=== PATIENT | male | born 1995 | race Hispanic/Latino ===

== ENCOUNTER → 2017-10-16 | Outpatient (CLI) | payer BC ==
[~2017-10-16] MED LIST: IOPAMIDOL 370 MG/ML 200 ML INFUS..BTL INJ ONE; SODIUM CHLORIDE 0.9% 50ML 50 ML ONE; SOLODYN115 MG PO
--- NOTE | 2017-10-18 10:16 | Diagnostic Imaging Report ---
PROCEDURE:CT ABDOMEN AND PELVIS WITH CONTRAST COMPARISON:None. INDICATIONS:Right lower quadrant pain. Concern for appendicitis. TECHNIQUE:Multidetector CT scanning of the abdomen and pelvis was performed from the level of the lung bases to below the symphysis pubis, after intravenous administration of 100 cc of Isovue 370 and water orally.. Scanning during early and delayed phases was performed. Coronal and sagittal multiplanar reformations were obtained. Initial scan was limited to motion artifact, the exam was repeated during excretory phase. FINDINGS: Lung bases: No visualized abnormality. Abdomen: The liver, gallbladder, biliary tree, spleen, pancreas, adrenal glands, and kidneys are normal. The hepatic vein, portal vein, and splenic vein are patent. The celiac artery, SMA, and MAT are patent. The renal arteries are patent. The abdominal aorta is within normal limits. The stomach, small bowel, and large bowel are unremarkable. The appendix is unremarkable. There is no free fluid or free air. Mildly prominent lymph nodes in the right lower quadrant possibly reactive. Pelvis: The bladder is unremarkable. There is no evidence of free fluid or adenopathy. Bones and soft tissues: Degenerative changes are present in the lumbar spine. CONCLUSION: 1. No acute abdominopelvic abnormality. No acute appendicitis. 2. Mildly prominent lymph nodes in the right lower quadrant possibly reactive; correlate for mild lymphadenitis. Jarad Davis M.D. Dictated by: Jarad Davis M.D. on 10/16/2017 at 17:09 Electronically approved by: Jonatan Sims D.O. on 10/18/2017 at 10:19
== END | disposition home or self-care (01) ==
LOC: CT 14:47
PROVIDERS: ATTEND Internal Medicine Gastroenterology
DX: R10.31 Right lower quadrant pain (principal); R59.9 Enlarged lymph nodes, unspecified
CPT/HCPCS: 74177; Q9967

== ENCOUNTER → 2017-10-23 | Day surgery (SDC) | payer BC ==
[~2017-10-23] MED LIST changes: +ADVIL200 MG PO; +FENTANYL CITRATE/PF 100MCG/2 ML INJ ONE; -IOPAMIDOL 370 MG/ML 200 ML INFUS..BTL INJ ONE; +MIDAZOLAM HCL 2 MG/2 ML VIAL ONE; +NEXIUM40 MG PO; +PROPOFOL IV EMULSION 10 MG/ML 50 ML VIAL ONE; -SODIUM CHLORIDE 0.9% 50ML 50 ML ONE
--- NOTE | 2017-10-23 15:20 | Operative Report ---
DATE OF PROCEDURE: October 23, 2017 PROCEDURE PERFORMED: Colonoscopy with biopsies. INDICATIONS FOR COLONOSCOPY: Lower abdominal pain. MEDICATION: Patient was done under MAC. Please see anesthesiologist's note. PROCEDURE: With the patient in the left lateral decubitus position, the flexible fiberoptic Olympus colonoscope was inserted into the rectum with ease and advanced all the way to the cecum. Prep was suboptimal but visualization was fair. Whatever was visualized of the mucosa overlying the cecum revealed some patchy areas of erythema, and biopsies were obtained. The ileocecal valve was intubated, and the scope was advanced into the terminal ileum. Biopsies were obtained. The scope was then withdrawn slowly, and the ascending and transverse appeared to be within normal limits. Some of the mucosa in the descending colon revealed some patchy mild inflammatory changes, and biopsies were obtained. The sigmoid and the rectum grossly appeared to be within normal limits. The scope was then retroflexed into the distal rectum, and the area around the dentate line appeared to be within normal limits. The scope was then straightened out. It was subsequently withdrawn. Patient tolerated procedure well. IMPRESSION: Mild segmental colitis left colon. PLAN: Follow up histology. Initiate high-fiber low-fat diet. Initiate high-fiber supplement. Job#: [id number]
== END | disposition home or self-care (01) ==
LOC: ENDO 11:32
PROVIDERS: ATTEND Internal Medicine Gastroenterology
DX: K50.10 Crohn's disease of large intestine without complications (principal); R03.0 Elevated blood-pressure reading, without diagnosis of hypertension; F17.210 Nicotine dependence, cigarettes, uncomplicated; Z68.36 Body mass index [BMI] 36.0-36.9, adult; Z80.0 Family history of malignant neoplasm of digestive organs
CPT/HCPCS: 45380; J2250; 45378

== ENCOUNTER → 2020-01-01 | Outpatient (CLI) | payer BC ==
[~2020-01-01] MED LIST changes: -FENTANYL CITRATE/PF 100MCG/2 ML INJ ONE; +HYDROCODON-ACE1 EA11 PO; -MIDAZOLAM HCL 2 MG/2 ML VIAL ONE; +MOTRIN200 MG PO; -PROPOFOL IV EMULSION 10 MG/ML 50 ML VIAL ONE
--- NOTE | 2020-01-01 14:30 | Diagnostic Imaging Report ---
EXAM: US LIVER DATE: 01/01/2020 1:34 PM INDICATION: ^[id number] ^[id number] ^ELEVATED LIVER ENZYMES COMPARISON: None TECHNIQUE: Transverse and longitudinal penny scale and color doppler sonographic images of the right upper quadrant were obtained. FINDINGS: LIVER 16.9 cm in the right midclavicular line. Liver is diffusely echogenic with normal contour, no masses. GALLBLADDER Limited evaluation due to contracted state. No definite stones or surrounding fluid is identified. Negative reported sonographic Lobo's sign. BILE DUCTS No intra nor extra-hepatic biliary dilation. Common bile duct measures 0.6cm PANCREAS: Well visualized. RIGHT KIDNEY: 11.2 cm Echogenicity: Normal Collecting System: No hydronephrosis Stones: None Cyst/Mass: None VESSELS: Aorta: Visualized portions are within normal size limits Inferior Vena Cava: Visualized portions are normal Main Portal Vein: 0.9 cm, normal size with hepatopetal flow. FREE FLUID: None IMPRESSION: 1. Hepatic steatosis. 2. Contracted gallbladder limits evaluation. No ultrasound evidence of acute cholecystitis or biliary dilatation. Signed by: Chauncey Ash MD on 01/01/2020 2:27 PM
== END ==
LOC: US 13:26
PROVIDERS: ATTEND Internal Medicine Gastroenterology
DX: R74.8 Abnormal levels of other serum enzymes (principal)
CPT/HCPCS: 76705

== ENCOUNTER → 2020-01-03 | Day surgery (SDC) | payer BC, OTHER ==
[2019-12-31 09:50] LABS: BASOPHILS # (AUTO) 0.1 (0.0-0.1); EOSINOPHILS # (AUTO) 0.8 (0.0-0.4); EOSINOPHILS % 5.9 % (0.0-6.0); HEMATOCRIT 40.8 % (38.2-49.6); HEMOGLOBIN 13.7 g/dL (14.0-18.0); LYMPHOCYTES # (AUTO) 2.7 (1.0-3.2); LYMPHOCYTES % 20.9 % (18.0-39.1); MEAN CORPUSCULAR HEMOGLOBIN 28.5 pg (28-32); MEAN CORPUSCULAR HGB CONC 33.6 g/dL (31-35); MONOCYTES # (AUTO) 1.3 (0.2-0.8); NEUTROPHILS % 61.6 % (38.7-80.0); PLATELET COUNT 325 x10e3/uL (140-360); RED CELL DISTRIBUTION WIDTH 14.3 % (11.7-14.4)
[2019-12-31 10:12] LABS: ALANINE AMINOTRANSFERASE 166 IU/L (0-55); ALKALINE PHOSPHATASE 182 IU/L (40-150); ANION GAP 16.8 mmol/L (8-16); BLOOD UREA NITROGEN 8 mg/dL (7-26); BUN/CREATININE RATIO 10 (6-25); CALCIUM 9.3 mg/dL (8.4-10.2); CARBON DIOXIDE 23 mmol/L (22-29); CHLORIDE 99 mmol/L (98-107); CREATININE, SERUM 0.77 mg/dL (0.72-1.25); EST GLOMERULAR FILTRATION RATE > 60 ML/MIN (60-); GLUCOSE 101 mg/dL (74-118); POTASSIUM 3.8 mmol/L (3.5-5.1); SODIUM 135 mmol/L (136-145)
[2019-12-31 10:13] LABS: ALBUMIN 4.1 g/dL (3.5-5.0); ALBUMIN/GLOBULIN RATIO 1.2 (0.8-2.0)
[2019-12-31 11:02] LABS: PARTIAL THROMBOPLASTIN TIME 30.9 seconds (23.8-35.5)
[2019-12-31 11:12] LABS: INR 0.89; PROTHROMBIN TIME 12.5 seconds (11.9-14.5)
[~2020-01-03] MED LIST changes: +FENTANYL CITRATE/PF 100MCG/2 ML INJ ONE; +KETAMINE HCL INJ 50 MG/ML 10 ML VIAL ONE; +LIDOCAINE HCL 2% LOCAL INJ 5 ML SDV VIAL INJ ONE; +MIDAZOLAM HCL 2 MG/2 ML VIAL ONE; +PANTOPRAZOLE 40 MG 10ML VIAL ONE; +PROPOFOL IV EMULSION 10 MG/ML 20 ML VIAL ONE; +TYLENOL # 31 EA PO
[2020-01-03 15:35] VITALS: BP 143/79
--- NOTE | 2020-01-03 15:49 | Operative Report ---
DATE OF PROCEDURE: 01/03/2020 SURGEON: Renato Vuong MD PROCEDURE: EGD with biopsies. INDICATIONS FOR PROCEDURES: Epigastric pain, excessive belching, heartburn. MEDICATIONS: The patient was done under MAC, please see anesthesiologist's note. PROCEDURE IN DETAIL: With the patient in left lateral decubitus position, a flexible fiberoptic Olympus gastroscope was introduced into the esophagus under direct visualization without any difficulty. There was some patchy erythema noted in distal esophagus. The scope was then advanced with ease into the stomach, mucosa overlying the antrum and the body revealed some patchy erythema and [id number] edema, and some patchy nodularity noted primarily in the antrum. Biopsies were obtained and sent to stain for H. pylori. Pylorus was of normal contour and shape, it was intubated with ease and the scope was advanced all the way to the second portion of the duodenum. The scope was then withdrawn slowly and biopsies were obtained from the proximal second portion and duodenal bulb to rule out sprue. The scope was then withdrawn back into the stomach and retroflexed, and mucosa overlying the fundus and cardia appeared to be within normal limits. The scope was then straightened out, it was subsequently withdrawn. The patient tolerated the procedure well. IMPRESSION: 1. Distal esophagitis, mild. 2. Gastritis, biopsied, biopsies sent to stain for H. pylori. 3. Rule out sprue. PLAN: 1. Follow up histology. 2. Initiate Protonix 40 mg one p.o. q.a.m. a.c. Renato Vuong MD [facility] /[id number]
== END | disposition home or self-care (01) ==
LOC: OR 14:07
PROVIDERS: ATTEND Internal Medicine Gastroenterology
DX: K20.9 Esophagitis, unspecified (principal); K29.50 Unspecified chronic gastritis without bleeding; B96.81 Helicobacter pylori [H. pylori] as the cause of diseases classified elsewhere; K75.81 Nonalcoholic steatohepatitis (NASH); R74.8 Abnormal levels of other serum enzymes; K21.9 Gastro-esophageal reflux disease without esophagitis; E66.9 Obesity, unspecified; Z72.0 Tobacco use; Z01.812 Encounter for preprocedural laboratory examination; Z11.59 Encounter for screening for other viral diseases; Z68.36 Body mass index [BMI] 36.0-36.9, adult
CPT/HCPCS: 36415; 43239; 80053; 85025; 85610; 85730; C9113; J2001; J2250; J2704; J3010; U0002

== ENCOUNTER 2020-01-05 21:04 | Inpatient (IN) | payer BC, OTHER ==
[~2020-01-05] VITALS: Ht 180.3 cm; Wt 112.9 kg
[~2020-01-05 21:04] MED LIST changes: -FENTANYL CITRATE/PF 100MCG/2 ML INJ ONE; -KETAMINE HCL INJ 50 MG/ML 10 ML VIAL ONE; -LIDOCAINE HCL 2% LOCAL INJ 5 ML SDV VIAL INJ ONE; -MIDAZOLAM HCL 2 MG/2 ML VIAL ONE; -PANTOPRAZOLE 40 MG 10ML VIAL ONE; -PROPOFOL IV EMULSION 10 MG/ML 20 ML VIAL ONE; -TYLENOL # 31 EA PO
--- NOTE | 2020-01-05 21:35 | Emergency Department Note ---
History of Present Illnes History of Present Illness Chief Complaint: Abdominal Complaints History of Present Illness This is a 24 year old male PRESENTS TO ED FOR C/O GENERALIZED ABD PAIN ONSET X1 WEEK, WORSE TODAY, STATES HAD EGD AT THIS FACILITY BY Sylwia DOWELL ON MONDAY; PT TENDER TO RUQ ON PALPATION; PT WITH KNOWN HX GALLBLADDER/LIVER ISSUES, STATES WAS SUPPOSED TO SEE MD ON MONDAY BUT COULD NOT TAKE PAIN ANYMORE, PT TOLERATING PO, DENIES N/V/D; ON REVIEW OF HIS LAB WORK FROM 12/31/2019 PT HAD A TOTAL BILIRUBIN OF 6.6 PT ALSO HAD A LIVER ULTRASOUND ON 01/01/20 WHICH ONLY REVEALED A CONTRACTED GALL BLADDER . Historian: Patient Arrival Mode: Car Onset (how long ago): day(s) (7) Location: UPPER ABD Quality: PAIN Radiation: Reports non-radiation Severity: moderate Duration (how long): day(s) (7) Timing of current episode: constant Progression: worsening Chronicity: new Context: Reports recent surgery (EGD ON 01/03/20); Denies recent illness, Denies trauma/injury Relieving factors: none Exacerbating factors: none Associated symptoms: Reports denies other symptoms Treatments prior to arrival: none Past Medical/Family History Physician Review I have reviewed the patient's past medical and family history. Any updates have been documented here. Past Medical History Recent Fever: No Clinical Suspicion of Infectio: No New/Unexplained Change in Ment: No Past Medical History: GERD Other Medical History: GASTRITIS HEPATITIC STEATOSIS Other Surgery: EGD Social History Smoking Cessation: Current some day smoker Alcohol Use: Social Any Illegal Drug Use: No Physically hurt or threatened: No Other Any Pre-Existing Lines (PICC,: No Review of Systems Review of Systems Constitutional: Reports no symptoms EENTM: Reports no symptoms Cardiovascular: Reports no symptoms Respiratory: Reports no symptoms Gastrointestinal: Reports as per HPI Genitourinary: Reports no symptoms Musculoskeletal: Reports no symptoms Integumentary: Reports no symptoms Neurological: Reports no symptoms Psychological: Reports no symptoms Endocrine: Reports no symptoms Hematological/Lymphatic: Reports no symptoms Physical Exam Related Data Allergies: Coded Allergies: No Known Allergies (Unverified , 11/13/12) Triage Vital Signs Vital Signs Date Time Temp Pulse Resp B/P (MAP) Pulse Ox O2 Delivery O2 Flow Rate FiO2 01/05/20 21:10 98.7 75 19 147/74 100 Room Air Vital signs reviewed: Yes Physical Exam CONSTITUTIONAL Constitutional: Present well-developed, Present well-nourished HENT HENT: Present normocephalic, Present atraumatic, Present oropharynx clear/moist, Present nose normal HENT L/R: Present left ext ear normal, Present right ext ear normal EYES Eyes: Reports PERRL, Reports scleral icterus NECK Neck: Present ROM normal PULMONARY Pulmonary: Present effort normal, Present breath sounds normal CARDIOVASCULAR Cardiovascular: Present regular rhythm, Present heart sounds normal, Present capillary refill normal, Present normal rate GASTROINTESTINAL Abdominal: Present soft, Present bowel sounds normal, Present tender (RUQ); Absent guarding, Absent mass, Absent rebound, Absent hernia GENITOURINARY Genitourinary: Present exam deferred SKIN Skin: Present warm, Present dry MUSCULOSKELETAL Musculoskeletal: Present ROM normal NEUROLOGICAL Neurological: Present alert, Present oriented x 3, Present no gross motor or sensory deficits PSYCHOLOGICAL Psychological: Present mood/affect normal, Present judgement normal Results Laboratory Laboratory Laboratory Tests Test 01/05/20 21:15 Assessment & Plan Medical Decision Making MDM PT WITH UPPER ABD PAIN AND RECENT LABS WITH T BILI OF 6.6 CBC, CMP, AMYLASE, LIPASE, UA ORDERED TO EVAL FOR ELEVATED LFT'S, PANCREATITIS, UTI, ELECTROLYTE ABNORMALITY I SPOKE WITH DR FERNANDEZ AND DR Mandie DOWELL ADMIT INPATIENT, ORDER MRCP, HIDA SCAN AND HEPATITIS PANEL. PT'S ELEVATED BILIRUBIN IS NOT SEPSIS RELATED, IT IS AN ONGOING ISSUE THAT IS BEING WORKED UP AT THIS TIME. Assessment & Plan Final Impression: (1) Jaundice (2) Elevated LFTs (3) Elevated bilirubin (4) Abdominal pain (5) UTI (urinary tract infection) Depart Disposition: ADMITTED Last Vital Signs Date Time Temp Pulse Resp B/P (MAP) Pulse Ox O2 Delivery O2 Flow Rate FiO2 01/05/20 21:10 98.7 75 19 147/74 100 Room Air Home Meds Reported Medications Ibuprofen (MOTRIN) 200 Mg Tab, 200 MG PO PRN, TAB 12/31/19 Hydrocodone Bit/Acetaminophen (HYDROCODON-ACETAMINOPHEN 5-325) 1 Each Tablet, PO PRN 12/31/19 Discontinued Reported Medications Ibuprofen (ADVIL) 200 Mg Tablet, 1 TAB PO PRN 10/20/17 Esomeprazole Magnesium (NEXIUM) 40 Mg Capsule., 1 CAP PO DAILY PROTONIX [facility] FOR NEXIUM PER [facility] 10/20/17 AMARJIT SCHULTZ MD Jan 05, 2020 21:35
[2020-01-05 21:38] LABS: BASOPHILS # (AUTO) 0.2 (0.0-0.1); BASOPHILS % 1.5 % (0.0-1.0); CLARITY,URINE CLEAR (CLEAR); COLOR,URINE AMBER (YELLOW); EOSINOPHILS # (AUTO) 0.6 (0.0-0.4); EOSINOPHILS % 4.7 % (0.0-6.0); HEMATOCRIT 40.8 % (38.2-49.6); HEMOGLOBIN 13.5 g/dL (14.0-18.0); LEUKOCYTE ESTERASE ,URINE NEGATIVE (NEGATIVE); LYMPHOCYTES # (AUTO) 4.3 (1.0-3.2); LYMPHOCYTES % 33.2 % (18.0-39.1); MEAN CORPUSCULAR HGB CONC 33.1 g/dL (31-35); MEAN CORPUSCULAR VOLUME 84.5 fL (81-99); MONOCYTES % 7.5 % (4.4-11.3); NEUTROPHILS # (AUTO) 6.7 (2.1-6.9); NITRITE,URINE NEGATIVE (NEGATIVE); PLATELET COUNT 472 x10e3/uL (140-360); PROTEIN,URINE DIPSTICK NEGATIVE (NEGATIVE); RED BLOOD COUNT 4.83 x10e6/uL (4.3-5.7); RED CELL DISTRIBUTION WIDTH 15.9 % (11.7-14.4)
[2020-01-05 21:39] LABS: BILIRUBIN,URINE LARGE (NEGATIVE); KETONES,URINE NEGATIVE (NEGATIVE); URINE UROBILINOGEN 0.2 mg/dL (0.2 - 1)
[2020-01-05 21:47] LABS: BACTERIA,URINE MANY /HPF; EPITHELIAL CELLS,URINE FEW /LPF; RBC,URINE 0-5 /HPF (0-5)
--- OUTSIDE RECORDS SUMMARY | 2020-01-05 21:50 | XMS REPORT | Continuity of Care Document ---
Author Author [facility] t Organization [facility] Address [address] [place] [address] [place] [id number] Phone Unavailable Care Team Providers Care Back End Engineer Name Role Phone DANYELL DOWELL Attphyoscar Unavailable Problems This patient has no known problems. Allergies, Adverse Reactions, Alerts This patient has no known allergies or adverse reactions. Medications This patient has no known medications. Procedures This patient has no known procedures. Results Test Description Test Time Test Comments Results Result Comments Source LIVER 2020-01-01 14:25:00 [place] [address] Patient Name: TANI PARRA MR #: [id number] : 1995 Age/Sex: 24/M Req #: [id number] Adm Physician: Ordered by: DANYELL DOWELL MD Report #: [id number] Location: Room/Bed: Procedure: [id number] US/US LIVER Exam Date: 01/01/20 Exam Time: 1334 REPORT STATUS: Signed EXAM: US LIVER DATE: 01/01/2020 1:34 PM INDICATION: [id number] 1334 ELEVATED LIVER ENZYMES COMPARISON: None TECHNIQUE: Transverse and longitudinal penny scale and color doppler sonographic images of the right upper quadrant were obtained. FINDINGS: LIVER 16.9 cm in the right midclavicular line. Liver is diffusely echogenic with normal contour, no masses. GALLBLADDER Limited evaluation due to contracted state. No definite stones or surrounding fluid is identified. Negative reported sonographic Lobo's sign. BILE DUCTS No intra nor extra-hepatic biliary dilation. Common bile duct measures 0.6cm PANCREAS: Well visualized. RIGHT KIDNEY: 11.2 cm Echogenicity: Normal Collecting System: No hydronephrosis Stones: None Cyst/Mass: None VESSELS: Aorta: Visualized portions are within normal size limits Inferior Vena Cava: Visualized portions are normal Main Portal Vein: 0.9 cm, normal size with hepatopetal flow. FREE FLUID: None IMPRESSION: 1. Hepatic steatosis. 2. Contracted gallbladder limits evaluation. No ultrasound evidence of acute cholecystitis or biliary dilatation. Signed by: Mai Ash MD on 01/01/2020 2:27 PM Dictated By: MAI ASH MD 26 Transcribed By: WILL on 01/01/201426 COPY TO: DANYELL DOWELL MD CT ABDOMEN/PELVIS W 2017-10-16 17:09:00 [place] [address] Patient Name: TANI PARRA MR #: [id number] : 1995 Age/Sex: 22/M Req #: [id number] Adm Physician: Ordered by: DANYELL DOWELL MD Report #: [id number] Location: CT Room/Bed: Procedure: [id number] CT/CT ABDOMEN/PELVIS W Exam Date: 10/16/17 Exam Time: 1614 REPORT STATUS: Signed PROCEDURE: CT ABDOMEN AND PELVIS WITH CONTRAST COMPARISON: None. INDICATIONS: Right lower quadrant pain. Concern for appendicitis. TECHNIQUE: Multidetector CT scanning of the abdomen and pelvis was performed from the level of the lung bases to below the symphysis pubis, after intravenous administration of 100 cc of Isovue 370 and water orally.. Scanning during early and delayed phases was performed. Coronal and sagittal multiplanar reformations were obtained. Initial scan was limited to motion artifact, the exam was repeated during excretory phase. FINDINGS: Lung bases: No visualized abnormality. Abdomen: The liver, gallbladder, biliary tree, spleen, pancreas, adrenal glands, and kidneys are normal. The hepatic vein, portal vein, and splenic vein are patent. The celiac artery, SMA, and MAT are patent. The renal arteries are patent. The abdominal aorta is within normal limits. The stomach, small bowel, and large bowel are unremarkable. The appendix is unremarkable. There is no free fluid or free air. Mildly prominent lymph nodes in the right lower quadrant possibly reactive. Pelvis: The bladder is unremarkable. There is no evidence of free fluid or adenopathy. Bones and soft tissues: Degenerative changes are present in the lumbar spine. CONCLUSION: 1. No acute abdominopelvic abnormality. No acute appendicitis. 2. Mildly prominent lymph nodes in the right lower quadrant possibly reactive; correlate for mild lymphadenitis. Jarad Fernando M.D. Dictated by: Jarad Fernando M.D. on 10/16/2017 at 17:09 Electronically approved by: Jonatan Sims D.O. on 10/18/2017 at 10:19 Dictated By: MARY LOU FERNANDO MD, MD 1019 Transcribed By: RADHA on 10/18/17 1019 COPY TO: DANYELL DOWELL MD
[2020-01-05 21:51] LABS: ALANINE AMINOTRANSFERASE 96 IU/L (0-55); ALBUMIN 4.2 g/dL (3.5-5.0); ALBUMIN/GLOBULIN RATIO 1.2 (0.8-2.0); ALKALINE PHOSPHATASE 203 IU/L (40-150); AMYLASE 44 U/L (25-125); ANION GAP 20.3 mmol/L (8-16); BLOOD UREA NITROGEN 11 mg/dL (7-26); BUN/CREATININE RATIO 11 (6-25); CALCIUM 9.6 mg/dL (8.4-10.2); CARBON DIOXIDE 23 mmol/L (22-29); CHLORIDE 99 mmol/L (98-107); CREATININE, SERUM 0.99 mg/dL (0.72-1.25); EST GLOMERULAR FILTRATION RATE > 60 ML/MIN (60-); GLUCOSE 97 mg/dL (74-118); LIPASE 78 U/L (8-78); POTASSIUM 4.3 mmol/L (3.5-5.1); SODIUM 138 mmol/L (136-145)
[2020-01-05] MEDS ORDERED: ONDANSETRON HCL INJ 2MG/ML 2ML 2 MG/ML VIAL IV PRN (22:45)
--- OUTSIDE RECORDS SUMMARY | 2020-01-05 22:54 | XMS REPORT | Continuity of Care Document ---
Author Author [facility] t Organization [facility] Address [address] [place] [address] [place] [address] Phone Unavailable Care Team Providers Care Supervisor Steno Pool Name Role Phone DANYELL DOWELL Attphyoscar Unavailable Problems This patient has no known problems. Allergies, Adverse Reactions, Alerts This patient has no known allergies or adverse reactions. Medications This patient has no known medications. Procedures This patient has no known procedures. Results Test Description Test Time Test Comments Results Result Comments Source LIVER 2020-01-01 14:25:00 [place] [address] Patient Name: TANI PARRA MR #: [id number] : 1995 Age/Sex: 24/M Req #: [id number] Adm Physician: Ordered by: DANYELL DOWELL MD Report #: [id number] Location: Room/Bed: Procedure: [id number] US/US LIVER Exam Date: 01/01/20 Exam Time: 1334 REPORT STATUS: Signed EXAM: US LIVER DATE: 01/01/2020 1:34 PM INDICATION: [id number] 1334 ELEVATED LIVER ENZYMES COMPARISON: None TECHNIQUE: [...] DOWELL MD CT ABDOMEN/PELVIS W 2017-10-16 17:09:00 [place] [address] Patient Name: TANI PARRA MR #: [id number] : 1995 Age/Sex: 22/M Req #: [id number] Adm Physician: Ordered by: DANYELL DOWELL MD Report #: [id number] Location: CT Room/Bed: Procedure: [id number] CT/CT ABDOMEN/PELVIS W Exam Date: 10/16/17 Exam [...]
[2020-01-05] MEDS: SODIUM CHLORIDE 0.9% 1000ML 1,000 ML IV SCH (23:13)
[2020-01-05] MEDS: CEFTRIAXONE SOD 1 GM/NS 50 ML 50 ML IV SCH (23:13)
[2020-01-06] VITALS (8 sets, daily range): BP systolic 105–127; BP diastolic 44–90
--- NOTE | 2020-01-06 00:22 | NUR ---
ER CALLED SHIFT REPORT TO NIGHT RN. PT IS ALERT AND ORIENTED X3. RESPIRATIONS ARE EVEN AND UNLABORED. ABDOMEN IS SOFT. bOWEL SOUNDS PRESENT. HX OF EGD LAST WEEK WITH DR DOWELL. DR DOWELL AWARE PT ADMITTED. 18G SL IN LEFT ARMNS INFUSING VIA PIV AT 125/HR.CALL LIGHT WITHIN REACH. bED IN LOW POSITION. REORIENTED PT TO ROOM, MS 1 . PT NPO FOR HIDA SCAN ANSD MRCP.
[2020-01-06] MEDS ORDERED: METRONIDAZOLE 500MG/NS 100ML 100 ML IV STA (02:42)
[2020-01-06] MEDS: PANTOPRAZOLE 40 MG 10ML VIAL IV SCH ×2 (04:36→15:13)
[2020-01-06] MEDS ORDERED: CALCIUM CARBONATE 500 MG CHEWABLE TABS PO STA (06:12)
[2020-01-06] MEDS: SODIUM CHLORIDE 0.9% 1000ML 1,000 ML IV SCH ×3 (06:25→23:49)
[2020-01-06 09:31] LABS: BASOPHILS # (AUTO) 0.2 (0.0-0.1); BASOPHILS % 1.4 % (0.0-1.0); EOSINOPHILS # (AUTO) 0.5 (0.0-0.4); HEMATOCRIT 38.2 % (38.2-49.6); HEMOGLOBIN 12.7 g/dL (14.0-18.0); LYMPHOCYTES % 25.3 % (18.0-39.1); MEAN CORPUSCULAR HEMOGLOBIN 27.9 pg (28-32); MEAN CORPUSCULAR HGB CONC 33.2 g/dL (31-35); MEAN CORPUSCULAR VOLUME 83.8 fL (81-99); MONOCYTES % 8.3 % (4.4-11.3); NEUTROPHILS # (AUTO) 7.1 (2.1-6.9); NEUTROPHILS % 59.9 % (38.7-80.0); PLATELET COUNT 426 x10e3/uL (140-360); RED BLOOD COUNT 4.56 x10e6/uL (4.3-5.7); RED CELL DISTRIBUTION WIDTH 15.8 % (11.7-14.4)
[2020-01-06 09:50] LABS: ALANINE AMINOTRANSFERASE 88 IU/L (0-55); ALBUMIN 3.9 g/dL (3.5-5.0); ALBUMIN/GLOBULIN RATIO 1.3 (0.8-2.0); ALKALINE PHOSPHATASE 184 IU/L (40-150); ANION GAP 15.9 mmol/L (8-16); BLOOD UREA NITROGEN 11 mg/dL (7-26); BUN/CREATININE RATIO 12 (6-25); CARBON DIOXIDE 22 mmol/L (22-29); CHLORIDE 102 mmol/L (98-107); EST GLOMERULAR FILTRATION RATE > 60 ML/MIN (60-); GLUCOSE 100 mg/dL (74-118); POTASSIUM 3.9 mmol/L (3.5-5.1); SODIUM 136 mmol/L (136-145)
[2020-01-06 10:44] LABS: AMYLASE 45 U/L (25-125); LIPASE 94 U/L (8-78)
[2020-01-06] MEDS ORDERED: MORPHINE SULFATE INJ 4 MG/ML INJ 1ML IV ONE (12:03)
[2020-01-06] MEDS ORDERED: MORPHINE SULFATE 2 MG/ML SYR 1ML ONE (12:17)
--- NOTE | 2020-01-06 13:27 | Diagnostic Imaging Report ---
ADDENDUM #1 In the impression in the original report, the word "mechanical" should be "metabolic". Hepatobiliary scan cannot distinguish between metabolic cholestasis and obstructive cholestasis. Signed by: Dr. Karly Coreas M.D. on 01/06/2020 1:30 PM ORIGINAL REPORT HIDA Scan with Morphine Challenge Reason for exam: Abdominal pain x 1 week Report: Following the administration of 6 of Tc-99m mebrofenin, dynamic images of the abdomen in the anterior projection were obtained through 60 minutes. Then, morphine sulfate 4 mg was administered via slow IV push and additional images were obtained through 30 minutes. Perfusion to the liver is normal. Extraction of tracer by the liver parenchyma is moderately prolonged. Tracer does not appear within the biliary tract during the initial 60-dynamic minute sequence nor during the 30-dynamic sequence following administration of morphine. Impression: Absence of secretion of tracer from the hepatocytes into the biliary tract consistent with cholestasis. Hepatobiliary scan cannot distinguish between mechanical versus obstructive cholestasis. Gallbladder filling cannot be assessed. Signed by: Dr. Karly Coreas M.D. on 01/06/2020 1:23 PM
--- NOTE | 2020-01-06 13:52 | Diagnostic Imaging Report ---
EXAM: MR Abdomen WITHOUT and WITH Contrast Magnetic Resonance Cholangiopancreatography (M.R.C.P.) INDICATION: ELEVATED BILI VALENTIN COMPARISON: None. TECHNIQUE: Multiplanar and multisequence imaging was performed of the abdomen without and with contrast. T1-weighted, T2-weighted images, T1-weighted in and [id number], and Diffusion weighted images. Dynamic, post gadolinium T1-weighted spoiled gradient echo scans. M.R.C.P. Technique: Multiplanar, multisequence MRCP was performed, with sequences including coronal turbo spin-echo T1-weighted scans, [facility] MRCP scans, coronal spin, coronal MPR 2, SMRCP 3D HR, [facility] MRCP VIVAR. IV Contrast: 15 mL of Gadavist gadolinium Oral Contrast: None Medications: None COMPLICATIONS: None FINDINGS: LOWER THORAX: Unremarkable. HEPATOBILIARY: No focal hepatic lesions. No biliary ductal dilation. GALLBLADDER: No radio-opaque stones or sludge. No wall thickening. SPLEEN: No splenomegaly. There are punctate T2 hyperintense lesions in the posterior aspect of the spleen. PANCREAS: No focal masses or ductal dilatation. ADRENALS: No adrenal nodules KIDNEYS/URETERS: Kidneys enhance symmetrically. No hydronephrosis. No cystic or solid mass lesions. No stones. GI TRACT: No abnormal distention, wall thickening, or evidence of bowel obstruction. Appendix is not visualized. LYMPH NODES: No lymphadenopathy. VESSELS: Unremarkable. PERITONEUM / RETROPERITONEUM: No free air or fluid. BONES: Unremarkable. SOFT TISSUES: Unremarkable. IMPRESSION: 1. No evidence of cholecystitis, cholelithiasis or choledocholithiasis. 2. Punctate T2 hyperintense lesions in the posterior aspect of the spleen which likely represent benign cysts or hemangiomas. Otherwise normal MRI/MRCP of the abdomen. Signed by: Lucius Freed MD on 01/06/2020 1:49 PM
[2020-01-06] MEDS: METRONIDAZOLE 500MG/NS 100ML 100 ML IV SCH ×2 (14:02→17:42)
[2020-01-06] MEDS ORDERED: ONDANSETRON HCL INJ 2MG/ML 2ML 2 MG/ML VIAL IV PRN (17:30)
[2020-01-06] MEDS ORDERED: HYDRALAZINE HCL 20 MG/ML VIAL IV PRN (17:30)
--- NOTE | 2020-01-06 18:41 | History and Physical ---
CONSULTING PHYSICIANS: Include Dr. Marcelo Landers with Surgery and Dr. Renato Vuong with Gastroenterology. CHIEF COMPLAINT: Abdominal pain, 12/08 on arrival. HISTORY OF PRESENT ILLNESS: The patient is a 24-year-old Latin-[place] male, presented to the emergency department with complaints of generalized abdominal pain, onset about one week ago and worse on 01/04. The patient stated that he had an EGD on Monday, 01/[address] Renato Vuong. He has known history of liver and gallbladder issues, and was supposed to see Dr. Vuong on Monday, but unable to take the pain anymore. He has been tolerating food orally. Denies any nausea, vomiting, or diarrhea on admission. Lab work that was done on 12/30, total bilirubin was 6.6 at that time. Liver ultrasound on 12/31 revealed a contracted gallbladder. PAST MEDICAL HISTORY: GERD, gastritis, and hepatic steatosis as well as obesity. PAST SURGICAL HISTORY: EGD on 01/[address] Renato Vuong. No other surgical history. FAMILY HISTORY: Mother had diabetes and hypertension as did her side of family. The patient's father has gastritis and was diagnosed about the same time as his son. SOCIAL HISTORY: The patient states he does not smoke every day. He smokes one cigarette while drinking or at family or social gatherings. He drinks about a 12 pack of beer every other weekend. Denies any use of illicit drugs. He lives with his fiancee and children. He is a [employer] in a [employer]. ALLERGIES: NO KNOWN ALLERGIES. HOME MEDICATIONS: Patten 5/325 mg as needed, Motrin 200 mg as needed. REVIEW OF SYSTEMS: A 14-point review of systems was completed. The patient currently denies any problems with ears, nose, throat, respiratory, genitourinary, psychiatric, integumentary, cardiovascular, musculoskeletal, neurologic, endocrine, allergic/immunological, hematologic/lymphatics systems. CONSTITUTIONAL: The patient states he thinks he lost a few pounds since he has had this abdominal pain. He was having a fever last week on and off. Recently he has had jaundice in his eyes. GASTROINTESTINAL: He had nausea earlier today but is better. His last bowel movement was 01/05. He is hungry and would like to eat, but understands that he needs to be n.p.o. for possible diagnostic studies or procedures. OBJECTIVE: VITAL SIGNS: Temperature 98.2, pulse 66, heart rate was 51 earlier, blood pressure 114/50, respirations 18, and oxygen saturation 99%. Height is 5 feet 11 inches, weight 249 pounds, BMI 34.72. GENERAL: Supine, asleep, easily arousable. No acute distress. LUNGS: Clear to auscultation. Respiratory pattern even and unlabored. No supplemental oxygen. HEENT:: Jaundice. Sclerae icteric. EOMI. NECK: Supple. No lymphadenopathy, thyromegaly, or JVD. CARDIOVASCULAR: Regular rate and rhythm. No murmur. Normal saline infusing at 125 mL an hour into peripheral IV. ABDOMEN: Bowel sounds positive. Especially in the left lower quadrant, slightly distended. Pain with gentle palpation. EXTREMITIES: No pitting edema. No clubbing, cyanosis, or signs of DVT. NEUROLOGICAL: GCS 15. Nonfocal. LABORATORY DATA: On 01/04, WBCs 12.87, hemoglobin 13.5, hematocrit 40.8, platelets 472. Sodium 138, potassium 4.3, chloride 99, CO2 of 23, anion gap 20.3, BUN 11, creatinine 0.99, estimated GFR greater than 60, glucose 97, calcium 9.6, total bilirubin 10.9, AST 52, ALT 96, alkaline phosphatase 203, total protein 7.6, albumin 4.2. Urinalysis completed yesterday shows lorrie urine, pH 5.5, specific gravity 1.020, trace amount of blood, negative for nitrites, negative for leukocyte esterase, large amount of bilirubin, WBCs 11 to 20, few epithelial cells, many urine bacteria. Coronavirus PCR collected 01/04 is pending. Hepatitis panel collected 01/04 is pending. On 01/05, WBCs 11.8, hemoglobin 12.7, hematocrit 38.2, platelets 426, neutrophils 59.9%. Sodium 136, potassium 3.9, chloride 102, CO2 of 22, anion gap 15.9, BUN 11, creatinine 0.9, estimated GFR greater than 60, glucose 100, calcium 9, total bilirubin 10.5, AST 53, ALT 88, alkaline phosphatase 184, total protein 6.9, albumin 3.9, amylase 45 (44), lipase 94 (78). IMAGING/OTHER: On 01/05, MRCP showed no evidence of cholecystitis, cholelithiasis or choledocholithiasis. Punctate T2 hyperintense lesions in the posterior aspect of the spleen which likely represent benign cyst or hemangiomas. Otherwise, normal MRCP of the abdomen. HIDA scan also done on 01/05 shows absence of secretion of tracer from the hepatocytes into the biliary tract consistent with cholestasis. Hepatobiliary scan cannot distinguish between mechanical versus obstructive cholestasis, gallbladder filling cannot be assessed. ASSESSMENT AND PLAN: 1. Transaminitis with jaundice, hepatic steatosis, and cholestasis. Surgery and Gastroenterology have been consulted and appreciate recommendations. Monitor LFTs. 2. Elevated total bilirubin. Total bilirubin 6.6 on admission, currently 10.5. Abdominal pain improved since admission. 3. Abdominal pain, acute generalized. The patient rates his current abdominal pain at 2/10. He wants to eat, however, understands that he needs to be n.p.o. for potential diagnostic studies and/or surgery. Continue pain control. 4. Possible acute urinary tract infection. Await final urine culture and sensitivity results. 5. Obesity with BMI of 34.72. Dietary restrictions. 6. Elevated lipase. Monitor for possible acute pancreatitis. 7. Gastroesophageal reflux disease. Continue Protonix. 8. Asymptomatic bradycardia. Heart rate is low as 42. Monitor. Inpatient billing code [id number]. Time spent 60 minutes. Dictated by Garret Mari NP Len Connolly MD HWP/MODL /[id number]
--- NOTE | 2020-01-06 18:57 | NUR ---
WALKING ROUNDS PERFORMED, RECEIVED PT LAYING SEMI FOWLERS IN BED, AAOX3, RR EVEN AND NON-LABORED, ON ROOM AIR. NO S/SX OF DISTRESS NOTED. LEFT PT LAYING SEMI FOWLERS IN BED, BED IN LOW LOCKED POSITION, SIDE RAILS UPX2, CALL LIGHT AND PHONE WITHIN REACH.
--- NOTE | 2020-01-06 19:27 | NUR ---
SPOKE WITH [employer] FREEMAN SUPERVISOR [employer] FLOOR WORKER CONCERNING PAIN MANAGEMENT FOR PATIENT. NEW ORDERS RECEIVED.
[2020-01-06] MEDS ORDERED: MORPHINE SULFATE 2 MG/ML SYR 1ML IV PRN (19:30)
[2020-01-06] MEDS: CEFTRIAXONE SOD 1 GM/NS 50 ML 50 ML IV SCH (23:50)
[2020-01-07] VITALS (7 sets, daily range): BP systolic 103–134; BP diastolic 57–73
[2020-01-07] MEDS: METRONIDAZOLE 500MG/NS 100ML 100 ML IV SCH ×5 (00:39→23:25)
[2020-01-07] MEDS: PANTOPRAZOLE 40 MG 10ML VIAL IV SCH ×2 (03:19→15:07)
[2020-01-07] MEDS ORDERED: DONNATAL/LIDOCAINE/MAALOX 30 ML SUSP PO ONE (03:30)
--- NOTE | 2020-01-07 04:06 | NUR ---
PT REPORTS NO RESOLUTION OF PAIN WITH GI COCKTAIL. NOTIFIED MD Sylwia DOWELL. NO NEW ORDERS AT THIS TIME.
[2020-01-07 05:21] LABS: BASOPHILS # (AUTO) 0.2 (0.0-0.1); BASOPHILS % 1.8 % (0.0-1.0); EOSINOPHILS # (AUTO) 0.4 (0.0-0.4); EOSINOPHILS % 3.6 % (0.0-6.0); HEMATOCRIT 37.1 % (38.2-49.6); HEMOGLOBIN 12.4 g/dL (14.0-18.0); LYMPHOCYTES # (AUTO) 2.6 (1.0-3.2); LYMPHOCYTES % 27.2 % (18.0-39.1); MEAN CORPUSCULAR HEMOGLOBIN 28.5 pg (28-32); MEAN CORPUSCULAR HGB CONC 33.4 g/dL (31-35); MEAN CORPUSCULAR VOLUME 85.3 fL (81-99); MONOCYTES # (AUTO) 0.9 (0.2-0.8); MONOCYTES % 9.7 % (4.4-11.3); NEUTROPHILS # (AUTO) 5.5 (2.1-6.9); NEUTROPHILS % 56.9 % (38.7-80.0); PLATELET COUNT 376 x10e3/uL (140-360); RED BLOOD COUNT 4.35 x10e6/uL (4.3-5.7); RED CELL DISTRIBUTION WIDTH 16.1 % (11.7-14.4)
[2020-01-07] MEDS: SODIUM CHLORIDE 0.9% 1000ML 1,000 ML IV SCH ×3 (05:35→21:02)
[2020-01-07 05:39] LABS: ALANINE AMINOTRANSFERASE 80 IU/L (0-55); ALBUMIN 3.8 g/dL (3.5-5.0); ALBUMIN/GLOBULIN RATIO 1.3 (0.8-2.0); ALKALINE PHOSPHATASE 175 IU/L (40-150); ANION GAP 18.7 mmol/L (8-16); BLOOD UREA NITROGEN 10 mg/dL (7-26); BUN/CREATININE RATIO 11 (6-25); CALCIUM 9.1 mg/dL (8.4-10.2); CARBON DIOXIDE 21 mmol/L (22-29); CHLORIDE 102 mmol/L (98-107); CHOL/HDL RATIO 21.9 (3.9-4.7); CHOLESTEROL 219 MD/DL (0-199); CREATININE, SERUM 0.93 mg/dL (0.72-1.25); EST GLOMERULAR FILTRATION RATE > 60 ML/MIN (60-); GLUCOSE 95 mg/dL (74-118); HDL CHOLESTEROL 10 MG/DL (40-60); LDL CHOLESTEROL 136 MG/DL (60-130); MAGNESIUM 1.9 MG/DL (1.3-2.1); PHOSPHORUS 3.5 MG/DL (2.3-4.7); POTASSIUM 3.7 mmol/L (3.5-5.1); SODIUM 138 mmol/L (136-145); TRIGLYCERIDES 366 MG/DL (0-149)
[2020-01-07 05:46] LABS: BILIRUBIN,DIRECT 8.2 mg/dL (0.0-0.5)
[2020-01-07 06:05] LABS: THYROID STIMULATING HORMONE 0.747 uIU/mL (0.350-4.940)
--- NOTE | 2020-01-07 07:00 | NUR ---
bedside rounds complete no distress noted, pt in stable condition, updated on poc voiced understanding,denies pain at this time, no other co voiced call light in reach will continue to monitor
[2020-01-07] MEDS: LEVOFLOXACIN 500MG/D5W 100ML 100 ML IV SCH (09:00)
[2020-01-07] MEDS ORDERED: ACETAMINOPHEN 325 MG TAB PO PRN (09:45)
[2020-01-07] MEDS: OMEGA 3 POLYUNSAT FATTY ACIDS 1000 MG SOFTGEL PO SCH (17:43)
[2020-01-07] MEDS: FAMOTIDINE 20 MG TAB PO SCH (17:43)
[2020-01-07] MEDS ORDERED: ATORVASTATIN 20 MG TAB PO SCH (21:00)
--- NOTE | 2020-01-07 22:24 | NUR ---
pt refused SCD machine.
--- NOTE | 2020-01-07 23:55 | NUR ---
Dr Sylwia Vuong in the room discussed with patient plan of care.
[2020-01-08] VITALS: BP 123/74
[2020-01-08] MEDS: PANTOPRAZOLE 40 MG 10ML VIAL IV SCH ×3 (02:15→17:56)
[2020-01-08 04:00] VITALS: BP 126/77
[2020-01-08] MEDS: METRONIDAZOLE 500MG/NS 100ML 100 ML IV SCH ×3 (05:13→17:56)
[2020-01-08 05:37] LABS: BASOPHILS # (AUTO) 0.1 (0.0-0.1); BASOPHILS % 1.5 % (0.0-1.0); EOSINOPHILS # (AUTO) 0.2 (0.0-0.4); EOSINOPHILS % 2.5 % (0.0-6.0); HEMOGLOBIN 12.1 g/dL (14.0-18.0); LYMPHOCYTES # (AUTO) 3.1 (1.0-3.2); LYMPHOCYTES % 36.4 % (18.0-39.1); MEAN CORPUSCULAR HEMOGLOBIN 27.4 pg (28-32); MEAN CORPUSCULAR HGB CONC 33.6 g/dL (31-35); MEAN CORPUSCULAR VOLUME 81.4 fL (81-99); MONOCYTES # (AUTO) 0.8 (0.2-0.8); MONOCYTES % 9.3 % (4.4-11.3); NEUTROPHILS # (AUTO) 4.2 (2.1-6.9); NEUTROPHILS % 49.7 % (38.7-80.0); PLATELET COUNT 403 x10e3/uL (140-360); RED BLOOD COUNT 4.42 x10e6/uL (4.3-5.7); RED CELL DISTRIBUTION WIDTH 15.9 % (11.7-14.4)
[2020-01-08 05:48] LABS: PARTIAL THROMBOPLASTIN TIME 36.1 seconds (23.8-35.5)
[2020-01-08 05:59] LABS: ALANINE AMINOTRANSFERASE 62 IU/L (0-55); ALBUMIN 3.6 g/dL (3.5-5.0); ALBUMIN/GLOBULIN RATIO 1.3 (0.8-2.0); ALKALINE PHOSPHATASE 156 IU/L (40-150); ANION GAP 16.6 mmol/L (8-16); BLOOD UREA NITROGEN 8 mg/dL (7-26); BUN/CREATININE RATIO 9 (6-25); CALCIUM 8.9 mg/dL (8.4-10.2); CARBON DIOXIDE 21 mmol/L (22-29); CHLORIDE 104 mmol/L (98-107); CREATININE, SERUM 0.91 mg/dL (0.72-1.25); EST GLOMERULAR FILTRATION RATE > 60 ML/MIN (60-); GLUCOSE 92 mg/dL (74-118); LIPASE 92 U/L (8-78); POTASSIUM 3.6 mmol/L (3.5-5.1); SODIUM 138 mmol/L (136-145)
[2020-01-08 06:01] LABS: INR 1.27; PROTHROMBIN TIME 16.5 seconds (11.9-14.5)
[2020-01-08] MEDS: SODIUM CHLORIDE 0.9% 1000ML 1,000 ML IV SCH ×2 (06:04→14:45)
--- NOTE | 2020-01-08 06:17 | NUR ---
pt up in bed, no distress. call light within reach. iv abx flagyl completed
--- NOTE | 2020-01-08 07:00 | NUR ---
BEDSIDE SHIFT REPORT FROM THANH BRIZUELA. PT DENIES NEEDS AT THIS TIME.
[2020-01-08] MEDS: FAMOTIDINE 20 MG TAB PO SCH (07:30)
[2020-01-08] MEDS: OMEGA 3 POLYUNSAT FATTY ACIDS 1000 MG SOFTGEL PO SCH ×2 (08:16→17:56)
[2020-01-08] MEDS: FENOFIBRATE 145 MG TAB PO SCH (08:17)
[2020-01-08 08:56] VITALS: BP_SYST 126; BP_SYST 128; BP_DIAS 77; BP_DIAS 81
[2020-01-08] MEDS: LEVOFLOXACIN 500MG/D5W 100ML 100 ML IV SCH (09:09)
--- NOTE | 2020-01-08 12:45 | NUR ---
PT TO OR AT THIS TIME.
[2020-01-08] MEDS ORDERED: IOPAMIDOL 300MG/ML 50ML INFUS..BTL IV ONE (12:53)
[2020-01-08] MEDS ORDERED: BUPIVACAINE 0.25%/EPI 30ML SDV INJ ONE (12:53)
[2020-01-08] MEDS ORDERED: HYDROGEN PEROXIDE 120 ML BTL ONE (12:53)
[2020-01-08 13:00] VITALS: BP 103/52
--- NOTE | 2020-01-08 15:38 | Diagnostic Imaging Report ---
EXAM: CHOLANGIOGRAM INTROP DATE: 01/08/2020 1:44 PM INDICATION: Elevated bilirubin Fluoroscopy Time: 13 seconds. Reference Air Kerma (Ka, r): 10.67 mGy. FINDINGS/IMPRESSION: Please of the examination was not performed by the radiologist. An intraoperative verbal report was not requested. Please see report for further details. Provided images demonstrate opacification of the intrahepatic biliary tree and common bile duct. There is FreeFlow of passage through the delivery system into the small bowel without evidence for ductal dilatation, fixed filling defect, or contrast extravasation. Signed by: Dr. Nito Benavides MD on 01/08/2020 3:34 PM
--- NOTE | 2020-01-08 15:39 | NUR ---
Nutrition Screen Note RD Recommendation for Physician: -Recommend advancing to GI soft diet when medically appropriate Plan of Care: RD following, monitoring for tolerance and adequacy Nutrition reason for involvement: Nutrition Risk Trigger Primary Diagnose(s): abdominal pain, elevated bilirubin, elevated LFTs, jaundice, and UTI PMH: GERD, gastritis, and hepatic steatosis as well as obesity. Ht: 71 in Wt: 249.05 lb BMI: 34.7 kg/m2 IBW: [address] Assessment: (01/08/20) Chart reviewed. Labs and meds reviewed. Pt is a 24 year old male admitted with abdominal pain, elevated bilirubin, elevated LFTs, jaundice, and UTI. Pt reports he is tolerating liquid diet. Pt also stated he had been consuming <50% of meals for the past week. Pt also stated he thinks he may have lost a few lbs and stated he had weighed 262 lbs at the end of November. Pt currently has a weight of 249 lbs in chart using bedscale. Unsure of accuracy of current bedscale weight. Offered pt a nutrition supplement, but pt declined. Will continue to monitor Current Diet: full liquids Malnutrition Evaluation (01/08/20) The patient does not meet criteria for a specified degree of malnutrition at this time. Will re-evaluate at follow-up as appropriate. Diet Education Needs Assessment: Diet education not indicated. Nutrition Care Level: low Signed: Juliette Luo, RD, LD
[2020-01-08] MEDS ORDERED: ONDANSETRON HCL INJ 2MG/ML 2ML 2 MG/ML VIAL IV PRN (16:00)
[2020-01-08] MEDS ORDERED: FENTANYL CITRATE/PF 100MCG/2 ML INJ ONE ×2 (16:25→21:47)
--- NOTE | 2020-01-08 16:45 | NUR ---
PT TO THE FLOOR FROM PACU. VITALS WNL. PT DENIES NEEDS AT THIS TIME.
--- NOTE | 2020-01-08 16:56 | Operative Report ---
DATE OF PROCEDURE: 01/08/2020 SURGEON: Micheal Landers MD PREOPERATIVE DIAGNOSES: Right upper quadrant pain, jaundice, cholecystitis. POSTOPERATIVE DIAGNOSIS: Right upper quadrant pain, jaundice, cholecystitis pending final path report. PROCEDURE PERFORMED: Laparoscopic cholecystectomy with intraoperative cholangiogram and wedge biopsy of the liver. WASHCLOTH FOLDER: JERRY Simpson. ESTIMATED BLOOD LOSS: Less than 50 mL. DRAIN: 110 mm flat Jose-Tejeda drain. COMPLICATIONS: None. INDICATION AND FINDINGS: The patient is a 24-year-old male who was admitted to the hospital complaining of several days history of abdominal pain, sort of generalized. He was initially evaluated by GI as an outpatient, underwent an EGD that did not reveal any acute process and had an ultrasound of the gallbladder as an outpatient that revealed no stones, no evidence of cholecystitis. The patient felt worse and developed fever and was then admitted through the emergency room to Dr. Connolly's service. The patient during this admission underwent an MRI CT that revealed no stones, no evidence of cholecystitis and a HIDA scan revealed severe cholestasis. Cholecystitis could not be ruled out because of the lack of excretion of the dye. The patient's liver chemistries continued to remain elevated. The bilirubin was elevated at about 11. The transaminases were markedly elevated. His hepatitis profile was negative. He was then decided to proceed with laparoscopic cholecystectomy, intraoperative cholangiogram and liver biopsy. INTRAOPERATIVE FINDINGS: The patient has congested fatty infiltrated liver. The gallbladder was decompressed and the wall looked grossly abnormal with thickening of the wall. There were no stones. An intraoperative cholangiogram was performed using 50% diluted dye and there was no filling defect. There was excretion of dye into the duodenum and visualization of both hepatic radicals and no filling defects. Of note is the fact that the common bile duct was rather small, but there were no abnormalities. A wedge biopsy was taken of the liver using the Pacman forceps in the area of the fundus of the gallbladder. DESCRIPTION OF PROCEDURE: With the patient lying on the operative table in the supine position after administration of general anesthesia, he was prepped and draped for laparoscopic cholecystectomy. The patient's procedure was begun by establishing the pneumoperitoneum in the umbilical site after stab wound was made in the location and saline drop test was performed and pneumoperitoneum was insufflated to 15 mmHg and then the 10/11 trocar was placed in that location. After we did that under direct vision with the camera, we placed a 10 mm subxiphoid port, two lateral right upper quadrant 5 mm trocars and eventually a left upper quadrant trocar to allow exposure of the operative field. After we did that, we retracted the gallbladder cephalad using grasping forceps to the right lateral working ports. The gallbladder was decompressed along with the findings noted above. We began the dissection in the neck of the gallbladder until we identified a tubular structure which turned out to be the cystic artery. We dissected that along the course of the gallbladder and then clipped between titanium clips. After we did that, we then continued the dissection, which was tedious and difficult. There were some inflammatory changes in the area at the hepatorenal ligament and we had difficulties finding the common bile duct. Eventually, we found the common bile duct deep into the undersurface of the liver. At this point, then we decided to proceed with intraoperative cholangiogram using 50% diluted dye with the findings noted above. After we did that, we clipped the cystic duct distally three times and once proximally and transected. There was another gallbladder branch posteriorly located and that was cut between titanium clips. We then continued the dissection from the liver bed using electrocautery dissection, traction and counter traction, carefully not to enter the liver bed to allow preventing any bile leak. We detached the gallbladder and then we took a wedge biopsy of the liver in the area of the fundus of the gallbladder. After we did that, we packed the area with Surgicel. We extracted the gallbladder through the umbilical port. We then reinstituted the pneumoperitoneum, irrigated the gutter, the undersurface of the liver. After ascertaining that there was no bile leak, no bleeding, no apparent bowel injury, we left a 10 mm flat Jose-Tejeda drain that was brought out through the right anterior axillary line trocar and secured there with 3-0 silk. After we did that, we released the pneumoperitoneum, closed the wound using 0-Vicryl for the umbilical fascia, 3-0 Vicryl for the subcutaneous tissue in that location as well as the subxiphoid port. The skin of all the ports was closed using beata. 0.25% Marcaine with epinephrine was given as local block at all the port sites. The patient tolerated the procedure well, was taken to recovery room in stable condition. MD PIOTR Mcguire/FLOR /[id number]
[2020-01-08] MEDS: DEXTROSE 5%/LACTATED RINGERS 1,000 ML IV SCH (17:55)
[2020-01-08] MEDS: HYDROMORPHONE 1MG/1ML INJ IV PRN ×2 (17:56→23:17)
--- NOTE | 2020-01-08 19:30 | NUR ---
BEDSIDE SHIFT REPORT RECEIVED FROM DAY RN. PT IS ALERT AND ORIENTED X3. RESPIRATIONS ARE EVEN AND UNLABORED. 5 TROCHAR SITES ARE DRY AND INTACT.JERI DRAIN CHARGED. PT TOLERATING PO WELL.CALL LIGHT WITHIN REACH. BED IN LOW POSITION.
[2020-01-08 20:00] VITALS: BP_SYST 119; BP_SYST 137; BP_DIAS 64; BP_DIAS 75
[2020-01-08] MEDS ORDERED: ONDANSETRON HCL INJ 2MG/ML 2ML 2 MG/ML VIAL ONE (21:30)
[2020-01-08] MEDS ORDERED: SEVOFLURANE INHAL SOLN 250 ML PEN BTL ONE (21:30)
[2020-01-08] MEDS ORDERED: LIDOCAINE HCL 2% LOCAL INJ 5 ML SDV VIAL INJ ONE (21:30)
[2020-01-08] MEDS ORDERED: DEXAMETHASONE SOD PHOS INJ 4 MG/ML VIAL ONE (21:30)
[2020-01-08] MEDS ORDERED: PROPOFOL IV EMULSION 10 MG/ML 20 ML VIAL ONE (21:30)
[2020-01-08] MEDS ORDERED: MIDAZOLAM HCL 2 MG/2 ML VIAL ONE (21:47)
[2020-01-09] VITALS (7 sets, daily range): BP systolic 107–123; BP diastolic 57–66
[2020-01-09] MEDS: DEXTROSE 5%/LACTATED RINGERS 1,000 ML IV SCH ×3 (02:30→22:00)
[2020-01-09 05:20] LABS: BASOPHILS # (AUTO) 0.1 (0.0-0.1); BASOPHILS % 0.3 % (0.0-1.0); HEMATOCRIT 36.6 % (38.2-49.6); HEMOGLOBIN 12.6 g/dL (14.0-18.0); LYMPHOCYTES # (AUTO) 2.3 (1.0-3.2); LYMPHOCYTES % 15.9 % (18.0-39.1); MEAN CORPUSCULAR HEMOGLOBIN 28.5 pg (28-32); MEAN CORPUSCULAR HGB CONC 34.4 g/dL (31-35); MEAN CORPUSCULAR VOLUME 82.8 fL (81-99); MONOCYTES # (AUTO) 0.9 (0.2-0.8); MONOCYTES % 6.1 % (4.4-11.3); NEUTROPHILS # (AUTO) 11.3 (2.1-6.9); NEUTROPHILS % 77.2 % (38.7-80.0); PLATELET COUNT 446 x10e3/uL (140-360); RED BLOOD COUNT 4.42 x10e6/uL (4.3-5.7); RED CELL DISTRIBUTION WIDTH 16.6 % (11.7-14.4)
[2020-01-09] MEDS: METRONIDAZOLE 500MG/NS 100ML 100 ML IV SCH ×3 (05:37→12:01)
[2020-01-09 05:51] LABS: ALANINE AMINOTRANSFERASE 102 IU/L (0-55); ALBUMIN 3.8 g/dL (3.5-5.0); ALBUMIN/GLOBULIN RATIO 1.3 (0.8-2.0); ALKALINE PHOSPHATASE 163 IU/L (40-150); ANION GAP 18.7 mmol/L (8-16); BLOOD UREA NITROGEN 7 mg/dL (7-26); BUN/CREATININE RATIO 8 (6-25); CALCIUM 9.2 mg/dL (8.4-10.2); CARBON DIOXIDE 22 mmol/L (22-29); CHLORIDE 100 mmol/L (98-107); CREATININE, SERUM 0.84 mg/dL (0.72-1.25); EST GLOMERULAR FILTRATION RATE > 60 ML/MIN (60-); GLUCOSE 133 mg/dL (74-118); MAGNESIUM 1.8 MG/DL (1.3-2.1); POTASSIUM 3.7 mmol/L (3.5-5.1); SODIUM 137 mmol/L (136-145)
--- NOTE | 2020-01-09 07:00 | NUR ---
BEDSIDE SHIFT REPORT FROM THANH TORRES. PT DENIES NEEDS AT THIS TIME.
[2020-01-09] MEDS: LEVOFLOXACIN 500MG/D5W 100ML 100 ML IV SCH (09:25)
[2020-01-09] MEDS: OMEGA 3 POLYUNSAT FATTY ACIDS 1000 MG SOFTGEL PO SCH ×2 (09:25→16:43)
[2020-01-09] MEDS: FENOFIBRATE 145 MG TAB PO SCH (09:25)
[2020-01-09] MEDS: HYDROMORPHONE 1MG/1ML INJ IV PRN (09:37)
[2020-01-09] MEDS: PANTOPRAZOLE 40 MG 10ML VIAL IV SCH (16:43)
--- NOTE | 2020-01-09 19:25 | NUR ---
BEDSIDE SHIFT REPORT RECEIVED FROM DAY RN. PT IS ALERT AND ORIENTED XE. RESPIRATIONS ARE EVEN AND UNLABORED. PT REFUSE SCDS BUT WALKING TO BATHROOM AND IN ROOM. BOWEL SOUNDS PRESENT. NO BM SINCE SURG. JERI CHARGED. 5 TROCHAR SITES DRY AND INTACT. PT DENIES PAIN AT THIS TIME. CALL LIGHT WITHIN REACH. BED IN LOW POSITION.
[2020-01-09] MEDS: HYDROCODONE/APAP 7.5MG-325MG 1 EA TAB PO PRN (22:40)
[2020-01-10] VITALS (8 sets, daily range): BP systolic 106–121; BP diastolic 58–97
[2020-01-10] MEDS: HYDROCODONE/APAP 7.5MG-325MG 1 EA TAB PO PRN (06:11)
[2020-01-10 06:13] LABS: BASOPHILS # (AUTO) 0.1 (0.0-0.1); EOSINOPHILS # (AUTO) 0.1 (0.0-0.4); EOSINOPHILS % 0.4 % (0.0-6.0); HEMATOCRIT 34.9 % (38.2-49.6); HEMOGLOBIN 12.3 g/dL (14.0-18.0); LYMPHOCYTES # (AUTO) 3.8 (1.0-3.2); LYMPHOCYTES % 32.3 % (18.0-39.1); MEAN CORPUSCULAR HEMOGLOBIN 29.7 pg (28-32); MEAN CORPUSCULAR HGB CONC 35.2 g/dL (31-35); MEAN CORPUSCULAR VOLUME 84.3 fL (81-99); MONOCYTES % 8.6 % (4.4-11.3); NEUTROPHILS # (AUTO) 6.7 (2.1-6.9); NEUTROPHILS % 57.2 % (38.7-80.0); PLATELET COUNT 393 x10e3/uL (140-360); RED BLOOD COUNT 4.14 x10e6/uL (4.3-5.7); RED CELL DISTRIBUTION WIDTH 18.1 % (11.7-14.4)
[2020-01-10 06:32] LABS: ALANINE AMINOTRANSFERASE 92 IU/L (0-55); ALBUMIN 3.6 g/dL (3.5-5.0); ALBUMIN/GLOBULIN RATIO 1.3 (0.8-2.0); ALKALINE PHOSPHATASE 174 IU/L (40-150); ANION GAP 19.5 mmol/L (8-16); BLOOD UREA NITROGEN 8 mg/dL (7-26); BUN/CREATININE RATIO 9 (6-25); CALCIUM 8.9 mg/dL (8.4-10.2); CARBON DIOXIDE 22 mmol/L (22-29); CHLORIDE 101 mmol/L (98-107); CREATININE, SERUM 0.89 mg/dL (0.72-1.25); EST GLOMERULAR FILTRATION RATE > 60 ML/MIN (60-); GLUCOSE 100 mg/dL (74-118); POTASSIUM 3.5 mmol/L (3.5-5.1); SODIUM 139 mmol/L (136-145)
[2020-01-10] MEDS: FENOFIBRATE 145 MG TAB PO SCH (08:57)
[2020-01-10] MEDS: OMEGA 3 POLYUNSAT FATTY ACIDS 1000 MG SOFTGEL PO SCH ×2 (08:57→16:20)
[2020-01-10] MEDS: LEVOFLOXACIN 500MG/D5W 100ML 100 ML IV SCH (08:58)
[2020-01-10] MEDS: DEXTROSE 5%/LACTATED RINGERS 1,000 ML IV SCH ×2 (08:58→18:45)
[2020-01-10] MEDS: PANTOPRAZOLE 40 MG 10ML VIAL IV SCH (16:20)
--- NOTE | 2020-01-10 19:19 | NUR ---
Received pt in bed asleep, no s/sx of acute distress noted. Bed in low and locked position, personal items and call light within reach. IVF infusing with no diff. Bedside report completed.
[2020-01-11] VITALS (7 sets, daily range): BP systolic 110–121; BP diastolic 52–73
[2020-01-11] MEDS: DEXTROSE 5%/LACTATED RINGERS 1,000 ML IV SCH ×3 (04:00→20:05)
[2020-01-11 06:43] LABS: ALANINE AMINOTRANSFERASE 78 IU/L (0-55); ALBUMIN 3.6 g/dL (3.5-5.0); ALBUMIN/GLOBULIN RATIO 1.3 (0.8-2.0); ALKALINE PHOSPHATASE 172 IU/L (40-150); ANION GAP 18.8 mmol/L (8-16); BLOOD UREA NITROGEN 7 mg/dL (7-26); BUN/CREATININE RATIO 8 (6-25); CALCIUM 8.9 mg/dL (8.4-10.2); CARBON DIOXIDE 23 mmol/L (22-29); CHLORIDE 100 mmol/L (98-107); CREATININE, SERUM 0.85 mg/dL (0.72-1.25); EST GLOMERULAR FILTRATION RATE > 60 ML/MIN (60-); GLUCOSE 112 mg/dL (74-118); POTASSIUM 3.8 mmol/L (3.5-5.1); SODIUM 138 mmol/L (136-145)
--- NOTE | 2020-01-11 07:00 | NUR ---
The pt. was received in bed asleep and in no apparent distress.
[2020-01-11 07:39] LABS: BASOPHILS # (AUTO) 0.1 (0.0-0.1); BASOPHILS % 1.3 % (0.0-1.0); EOSINOPHILS # (AUTO) 0.2 (0.0-0.4); EOSINOPHILS % 1.8 % (0.0-6.0); HEMOGLOBIN 12.4 g/dL (14.0-18.0); LYMPHOCYTES # (AUTO) 3.6 (1.0-3.2); LYMPHOCYTES % 34.2 % (18.0-39.1); MEAN CORPUSCULAR HEMOGLOBIN 27.5 pg (28-32); MEAN CORPUSCULAR HGB CONC 33.5 g/dL (31-35); MONOCYTES # (AUTO) 1.1 (0.2-0.8); MONOCYTES % 10.5 % (4.4-11.3); NEUTROPHILS # (AUTO) 5.4 (2.1-6.9); NEUTROPHILS % 51.6 % (38.7-80.0); PLATELET COUNT 478 x10e3/uL (140-360); RED BLOOD COUNT 4.51 x10e6/uL (4.3-5.7); RED CELL DISTRIBUTION WIDTH 17.2 % (11.7-14.4)
[2020-01-11] MEDS: LEVOFLOXACIN 500MG/D5W 100ML 100 ML IV SCH (09:00)
[2020-01-11] MEDS ORDERED: TYLENOL # 31 EA PO (10:34)
[2020-01-11] MEDS: PANTOPRAZOLE 40 MG 10ML VIAL IV SCH (17:34)
[2020-01-12] VITALS: BP 113/50
[2020-01-12 03:19] VITALS: BP 113/50
[2020-01-12 04:00] VITALS: BP 100/47
[2020-01-12 05:38] LABS: BASOPHILS # (AUTO) 0.2 (0.0-0.1); BASOPHILS % 1.3 % (0.0-1.0); EOSINOPHILS # (AUTO) 0.3 (0.0-0.4); EOSINOPHILS % 2.6 % (0.0-6.0); HEMATOCRIT 35.2 % (38.2-49.6); HEMOGLOBIN 12.7 g/dL (14.0-18.0); LYMPHOCYTES # (AUTO) 3.8 (1.0-3.2); LYMPHOCYTES % 33.8 % (18.0-39.1); MEAN CORPUSCULAR HEMOGLOBIN 29.9 pg (28-32); MEAN CORPUSCULAR HGB CONC 36.1 g/dL (31-35); MEAN CORPUSCULAR VOLUME 82.8 fL (81-99); MONOCYTES # (AUTO) 1.1 (0.2-0.8); MONOCYTES % 9.6 % (4.4-11.3); NEUTROPHILS # (AUTO) 5.9 (2.1-6.9); PLATELET COUNT 420 x10e3/uL (140-360); RED BLOOD COUNT 4.25 x10e6/uL (4.3-5.7); RED CELL DISTRIBUTION WIDTH 18.6 % (11.7-14.4)
[2020-01-12 05:54] LABS: ALANINE AMINOTRANSFERASE 74 IU/L (0-55); ALBUMIN 3.8 g/dL (3.5-5.0); ALBUMIN/GLOBULIN RATIO 1.3 (0.8-2.0); ALKALINE PHOSPHATASE 177 IU/L (40-150); ANION GAP 18.9 mmol/L (8-16); BLOOD UREA NITROGEN 9 mg/dL (7-26); BUN/CREATININE RATIO 10 (6-25); CALCIUM 9.3 mg/dL (8.4-10.2); CARBON DIOXIDE 22 mmol/L (22-29); CHLORIDE 100 mmol/L (98-107); CREATININE, SERUM 0.94 mg/dL (0.72-1.25); EST GLOMERULAR FILTRATION RATE > 60 ML/MIN (60-); GLUCOSE 96 mg/dL (74-118); POTASSIUM 3.9 mmol/L (3.5-5.1); SODIUM 137 mmol/L (136-145)
--- NOTE | 2020-01-12 07:00 | NUR ---
bedside shift report received pt in stable condition, denies pain at this time, updated on poc vocied understanding, call light in reach will continue to monitor
[2020-01-12 08:00] VITALS: BP 116/64
[2020-01-12] MEDS: LEVOFLOXACIN 500MG/D5W 100ML 100 ML IV SCH (09:46)
[2020-01-12 12:00] VITALS: BP 119/65
[2020-01-12 16:00] VITALS: BP 121/80
--- NOTE | 2020-01-13 13:34 | Discharge Summary ---
ADMISSION DIAGNOSES: Transaminitis with jaundice, hepatic steatosis, cholestasis, urinary tract infection present on admission, obesity with a BMI of 34.72, pancreatitis, gastroesophageal reflux disease, asymptomatic bradycardia. DISCHARGE DIAGNOSES: Transaminitis with jaundice, hepatic steatosis, cholestasis, urinary tract infection present on admission, obesity with a BMI of 34.72, pancreatitis, gastroesophageal reflux disease, asymptomatic bradycardia, cholestatic jaundice of unknown origin, rule out coronavirus, rule out urinary tract infection. HISTORY: GERD, gastritis, hepatic steatosis. SURGICAL HISTORY: None. FAMILY HISTORY: The patient's mom has diabetes. SOCIAL HISTORY: Occasional cigarette use and occasional alcohol use. HOSPITAL COURSE: A 24-year-old male presents with complaints of generalized abdominal pain, onset about one week ago and worse on the day of admission. The patient had an EGD on January 03, [address] Vuong. He has known history of liver and gallbladder issues and was supposed to see Dr. Vuong on Monday, but was unable to take the pain anymore. He has been tolerating food. Denies nausea, vomiting or diarrhea. On admission, MRCP was done due to elevated LFTs. MRCP showed no evidence of cholecystitis, cholelithiasis or choledocholithiasis. He then had a HIDA scan, which showed absence of secretion of tracer from the hepatocytes and a biliary tract consistent with cholestasis. HIDA scan cannot distinguish between metabolic versus obstructive cholestasis. The patient was then taken to have cholecystectomy with cholangiogram on 01/07. The patient tolerated the procedure well and had a JERI drain placed. Urine culture was negative. Hepatitis screen negative. GI and Surgery continued to follow. The bilirubin remained elevated even after the procedure as did the rest of the LFTs. The patient can be discharged home after the JERI drain is removed today per surgery recommendation. Also per Dr. Vuong's recommendation, the patient will call Dr. Vuong's office on Monday, who will make a scheduled appointment with Dr. Santana in the [facility] on Monday. The patient understands discharge instructions and agrees to plan, vital signs stable, patient afebrile. Dictated by Belinda Valenzuela NP Len Connolly MD FIDELINA/MODL /[id number]
== END 2020-01-12 18:08 | disposition home or self-care (01) | DRG 417 ==
LOC: ER 21:08 → ERHOLD 22:50 → MED/SURG 01-06 00:26
PROVIDERS: ADMIT Internal Medicine; ATTEND Internal Medicine
PROC: BF13YZZ Fluoroscopy of Gallbladder and Bile Ducts using Other Contrast (ICD-10-PCS; 2020-01-08)
PROC: 0FB04ZX Excision of Liver, Percutaneous Endoscopic Approach, Diagnostic (ICD-10-PCS; 2020-01-08)
PROC: 0FT44ZZ Resection of Gallbladder, Percutaneous Endoscopic Approach (ICD-10-PCS; principal; 2020-01-08 09:00)
DX: K81.1 Chronic cholecystitis (principal); K85.90 Acute pancreatitis without necrosis or infection, unspecified; R17 Unspecified jaundice; K83.09 Other cholangitis; E66.9 Obesity, unspecified; K21.9 Gastro-esophageal reflux disease without esophagitis; Z68.34 Body mass index [BMI] 34.0-34.9, adult; R00.1 Bradycardia, unspecified; K76.0 Fatty (change of) liver, not elsewhere classified; E78.5 Hyperlipidemia, unspecified; K29.70 Gastritis, unspecified, without bleeding; Z83.3 Family history of diabetes mellitus; Z72.89 Other problems related to lifestyle; Z72.0 Tobacco use; Z11.59 Encounter for screening for other viral diseases
CPT/HCPCS: 36415; 74181; 74300; 78227; 80053; 80061; 81001; 82140; 82150; 82248; 83036; 83690; 83735; 84100; 84155; 84443; 85025; 85610; 85730; 86039; 86255; 87086; 88304; 88307; 88313; 97139; 99284; A9537; C1766; J0696; J1100; J1170; J1956; J2001; J2250; J2270; J2405; J3010; J7030; U0002

== ENCOUNTER 2022-09-16 18:27 | Emergency (ER) | payer BC ==
[~2022-09-16] VITALS: Ht 180.3 cm; Wt 122.5 kg
[~2022-09-16 18:27] MED LIST changes: +TYLENOL # 31 EA PO
[2022-09-16] MEDS ORDERED: SODIUM CHLORIDE 0.9% 1000ML 1,000 ML ONE (18:33)
[2022-09-16] MEDS ORDERED: FAMOTIDINE 20 MG/2 ML VIAL IV ONE ×2 (18:33→18:45)
[2022-09-16] MEDS ORDERED: KETOROLAC TROMETHAMINE 30 MG/ML VIAL ONE (18:33)
[2022-09-16] MEDS ORDERED: ONDANSETRON HCL INJ 2MG/ML 2ML 2 MG/ML VIAL ONE (18:33)
[2022-09-16] MEDS ORDERED: SODIUM CHLORIDE 0.9% 1000ML 1,000 ML IV STA (18:37)
[2022-09-16] MEDS ORDERED: ONDANSETRON HCL INJ 2MG/ML 2ML 2 MG/ML VIAL IV ONE (18:45)
[2022-09-16] MEDS ORDERED: KETOROLAC TROMETHAMINE 30 MG/ML VIAL IV ONE (18:45)
[2022-09-16] MEDS ORDERED: IOPAMIDOL 610MG/1ML 300 MG/ML VIAL IV ONE (19:00)
[2022-09-16] MEDS ORDERED: ONDANSETRON ODT4 MG PO (20:41)
[2022-09-16] MEDS ORDERED: NEXIUM40 MG PO (20:41)
[2022-09-16 20:50] VITALS: BP 136/67; PULSE 83; RESP 18; TEMP 98; O2SAT 97
== END 2022-09-16 20:50 | disposition home or self-care (01) ==
LOC: FSED 18:30
DX: R10.13 Epigastric pain (principal); K29.70 Gastritis, unspecified, without bleeding; R94.5 Abnormal results of liver function studies; K21.9 Gastro-esophageal reflux disease without esophagitis; R11.0 Nausea
CPT/HCPCS: 36415; 74177; 80048; 80076; 81003; 83690; 85025; 96374; 96375; 96376; 99284; J1885; J2405; J7030; Q9967